=== PATIENT | female | born 1985 | race Caucasian/White ===

== ENCOUNTER 2021-05-10 16:02 | Inpatient (IN) ==
[~2021-05-10 16:02] MED LIST: Famotidine 20 MG/2 ML VIAL IVP PRN; Metoclopramide 10 MG/2 ML VIAL IVP PRN; Naloxone 0.4 MG/ML INJ IVP PRN
[2021-05-10] MEDS ORDERED: Oxytocin 20 units/ LR 1000 mL 20 UNIT/1,000 ML BAG IVC ONE (16:06)
[2021-05-10 16:41] LABS: Basophils % 0.3 %; Eosinophils # 0.1 K/mcL (0.0-0.6); Eosinophils % 0.8 %; Hemoglobin 10.7 g/dL (11.5-15.4); Immature Granulocytes % 0.4 % (0-4); Lymphocytes # 2.3 K/mcL (0.6-4.6); Lymphocytes % 14.7 %; Mean Corpuscular HGB Conc 31.5 g/dL (31.6-35.5); Mean Corpuscular Hemoglobin 25.4 pg (28.0-33.3); Mean Corpuscular Volume 80.6 fL (83.0-100.0); Monocytes # 0.7 K/mcL (0.0-1.3); Monocytes % 4.5 %; Neutrophils # 12.3 K/mcL (1.6-8.9); Platelet Count 410 K/mcL (140-400); Red Blood Count 4.22 M/mcL (3.82-4.97); Red Cell Distribution Width 15.9 % (11.5-14.5); Segmented Neutrophils % 79.3 %; White Blood Count 15.5 K/mcL (4.3-11.1)
[2021-05-10 17:00] LABS: Aspartate Amino Transferase 14 Units/L (13-39); BUN/Creatinine Ratio 15 (6-26); Blood Urea Nitrogen 9 mg/dL (6-20); Calcium 8.6 mg/dL (8.6-10.3); Carbon Dioxide 21 mEq/L (23-29); Chloride 103 mEq/L (98-107); Glucose 97 mg/dL (70-105); Osmolality,Calculated 273 (280-300); Sodium 132 mEq/L (136-145); eGFR For African Americans > 60 (> 60); eGFR For Non-African Americans > 60 (> 60)
[2021-05-10 17:27] LABS: Varicella Zoster IgG Antibody Positive
[2021-05-10 17:28] LABS: Rubella IgG Antibody POSITIVE (POSITIVE)
[2021-05-10 17:36] LABS: Hepatitis B Surface Antigen Nonreactive (Nonreactive)
[2021-05-10 18:04] LABS: HIV-1&2 Antibody & p24 Ag Nonreactive (Nonreactive)
[2021-05-10 18:28] LABS: Amphetamine Screen,Urine Positive ng/mL (Cutoff=1000); Barbiturate Screen,Urine Negative ng/mL (Cutoff=200); Benzodiazepines Screen,Urine Negative ng/mL (Cutoff=200); Cannabinoid Screen,Urine Positive ng/mL (Cutoff = 50); Cocaine Screen,Urine Negative ng/mL (Cutoff= 300); Opiate Screen,Urine Negative ng/mL (Cutoff=300); Phencyclidine Screen,Urine Negative ng/mL (Cutoff=25)
[2021-05-10] MEDS ORDERED: Benzocaine/Menthol 56 GM AEROSOL SPRAY TP PRN (18:34)
[2021-05-10] MEDS ORDERED: Oxytocin 20 units/ LR 1000 mL 20 UNIT/1,000 ML BAG IVC SCH (18:34)
[2021-05-10] MEDS ORDERED: Rho Immune Globulin 1,500 UNIT SYRINGE IM PRN (18:34)
[2021-05-10] MEDS ORDERED: Measles/Mumps/Rubella Vacc 0.5 ML VIAL SQ PRN (18:34)
[2021-05-10] MEDS ORDERED: Ondansetron ODT 4 MG TAB.RAPDIS SL PRN (18:34)
[2021-05-10] MEDS ORDERED: Lanolin 7 G OINT...G. TP PRN (18:34)
[2021-05-10] MEDS: Acetaminophen 325 MG TABLET PO SCH (23:15)
[2021-05-11] MEDS: Ibuprofen 600 MG TABLET PO SCH (05:19)
[2021-05-11] MEDS: Prenatal Vit/FA 1 EACH TABLET PO SCH (07:53)
[2021-05-11] MEDS: Acetaminophen 325 MG TABLET PO SCH ×2 (08:13→21:33)
[2021-05-12] MEDS: Acetaminophen 325 MG TABLET PO SCH (08:45)
[2021-05-12] MEDS: Prenatal Vit/FA 1 EACH TABLET PO SCH (08:45)
[2021-05-12] MEDS: Ibuprofen 600 MG TABLET PO SCH (08:46)
[2021-05-12 09:28] VITALS: BP 118/80; PULSE 94; TEMP 98.9; O2SAT 97
== END 2021-05-12 09:31 | disposition home or self-care (01) | DRG 560 ==
LOC: 1NENULAB → 1NENUOBS 18:20
PROVIDERS: ADMIT Registered Nurse; ATTEND Registered Nurse